=== PATIENT | female | born 1965 ===

== ENCOUNTER 2022-08-16 13:02 | Emergency (ER) | payer OTHER ==
[~2022-08-16] VITALS: Ht 172.7 cm; Wt 88.5 kg
[2022-08-16] MEDS ORDERED: ALPR.5 PO (13:32)
[2022-08-16] MEDS ORDERED: Armour Thyroid15 MG PO (13:32)
[2022-08-16] MEDS ORDERED: CONEST.625 PO (13:33)
[2022-08-16] MEDS ORDERED: PROG100 PO (13:33)
[2022-08-16] MEDS ORDERED: OXYC5 PO (15:49)
== END 2022-08-16 16:00 | disposition home or self-care (01) ==
LOC: ER 13:02
DX: S09.90XA Unspecified injury of head, initial encounter (principal); S13.4XXA Sprain of ligaments of cervical spine, initial encounter; V89.2XXA Person injured in unspecified motor-vehicle accident, traffic, initial encounter
CPT/HCPCS: 70450; 72125; A9270

== ENCOUNTER → 2024-11-16 | Outpatient (CLI) | payer OTHER ==
[~2024-11-16] MED LIST: ALPR.5 PO; Armour Thyroid15 MG PO; CONEST.625 PO; OXYC5 PO; PROG100 PO
[2024-11-22 15:13] LABS: HPV HIGH RISK BY TMA Not Detected; HPV SOURCE Cervical
== END ==
LOC: LAB SHORT 12:59 → LAB 12:59
PROVIDERS: Obstetrics & Gynecology
DX: Z01.419 Encounter for gynecological examination (general) (routine) without abnormal findings (principal)
CPT/HCPCS: 87624; G0123

== ENCOUNTER 2024-12-06 19:37 | Emergency (ER) | payer OTHER ==
[~2024-12-06] VITALS: Ht 172.7 cm; Wt 90.7 kg
[~2024-12-06 19:37] MED LIST changes: -ALPR.5 PO; +ALPRAZOLAM2 M1 PO; +CLIMARA1 EACH TOP; +CYMBALTA30 M2 PO; +EUTHYROX88 MCG PO; +NALTREX1.5 MG PO; +OMEP20ER PO; +TRAZ50 PO
[2024-12-06 19:57] VITALS: BP 151/96
== END 2024-12-06 20:45 | disposition home or self-care (01) ==
LOC: ER 19:37
DX: S61.211A Laceration without foreign body of left index finger without damage to nail, initial encounter (principal); E03.9 Hypothyroidism, unspecified; K21.9 Gastro-esophageal reflux disease without esophagitis; W26.0XXA Contact with knife, initial encounter; Z79.899 Other long term (current) drug therapy; Z88.1 Allergy status to other antibiotic agents; Z88.8 Allergy status to other drugs, medicaments and biological substances
CPT/HCPCS: 12001; 99282-25

== ENCOUNTER 2024-12-21 12:50 | Day surgery (SDC) | payer OTHER ==
[~2024-12-21] VITALS: Ht 172.7 cm; Wt 90.8 kg
[2024-12-21] VITALS (9 sets, daily range): BP systolic 133–148; BP diastolic 80–90
[~2024-12-21 12:50] MED LIST changes: +Lactated Ringer's 1,000 ML IV SCH
[2024-12-21] MEDS ORDERED: CLON2 PO (13:14)
[2024-12-21] MEDS ORDERED: DHEA PO (13:14)
[2024-12-21] MEDS ORDERED: Acetaminophen325 M1 PO (13:14)
[2024-12-21] MEDS ORDERED: THERA-D2000 UNIT PO (13:14)
[2024-12-21] MEDS ORDERED: VITAMIN B121000 MCG PO (13:15)
[2024-12-21] MEDS ORDERED: OMEGA-3 + VITA200 ML PO (13:15)
[2024-12-21] MEDS ORDERED: DOTTI1 EA18 TD (13:18)
--- NOTE | 2024-12-21 13:53 | NUR ---
Ambulatory in Day Surgery. History, Chart, Medications and Allergies reviewed before start of procedure. Lungs clear T/O to Auscultation. Patient States Post-Procedure ride home has been arranged. Patient ADMITS TO HAVING AN "ESSENTIAL OIL LOSENGE" RIGHT AFTER GETTING DRESSED INTO PT GOWN AROUND 1315. ANESTHESIA AND SURGEON NOTIFIED, PER ANESTHESIA, PROCEDURE WILL BE DELAYED AND START AT 1500. Pre-Op teaching done. Pt verbalizes understanding. PT HAS SEVERE ANXIETY, ANESTHESIA AWARE. DR DIETRICH AT BEDSIDE AT 1358 HE GAVE 3MG VERSED IV. MONITORING SPO2 AND HR CONTINUOUSLY. PT SPOUSE HARRIS AT BEDSIDE. PT BELONGINGS PLACED UNDERNEATH [employer] FOR SAFEKEEPING.
[2024-12-21] MEDS ORDERED: Midazolam HCL 1 MG/ML 5MLVIAL ONE (13:54)
[2024-12-21] MEDS ORDERED: propofoL 100 ML IV ONE (14:20)
[2024-12-21] MEDS ORDERED: FentaNYL Citrate 50 MCG/ML 2 ML Injection ONE (14:25)
--- NOTE | 2024-12-21 14:26 | NUR ---
Patient up to Ambulate independently. Gait steady. Discharge instructions reviewed with patient. Patient verbalizes understanding. Copy given to patient to take home, [facility] FAMILY. Patient States Post-Procedure ride home has been arranged. Discharged via wheelchair to private car for ride home. PT TOLERATING PO. PT REPORTS PAIN TOLERABLE. REPORTS READY TO GO HOME. MINIMAL AMT OF DRAINAGE ON ANATOLIY PAD. PT REPORTS HAVING ANATOLIY PADS AT HOME.
[2024-12-21] MEDS ORDERED: Ondansetron HCl 2 MG / ML 2ML Vial ONE (14:28)
[2024-12-21] MEDS ORDERED: Ketorolac Tromethamine 30mg Vial ONE (14:28)
[2024-12-21] MEDS ORDERED: Rocuronium Bromide 10 MG/ML 5ML Injection IV ONE (14:28)
[2024-12-21] MEDS ORDERED: Dexamethasone Sod Phos 10 MG/ML 1ML VIAL ONE (14:28)
[2024-12-21] MEDS ORDERED: Lidocaine HCl 2% 20 ML MDV ONE (14:50)
[2024-12-21] MEDS ORDERED: Prochlorperazine Edisylate 10 mg Vial IV PRN (15:15)
[2024-12-21] MEDS ORDERED: HYDROmorphone HCl 0.5 MG/0.5 ML SYR IV PRN (15:20)
[2024-12-21] MEDS ORDERED: FentaNYL Citrate 50 MCG/ML 2 ML Injection IV PRN ×3 (15:20)
[2024-12-21] MEDS ORDERED: Ondansetron HCl 2 MG / ML 2ML Vial IV PRN ×2 (15:20→15:55)
== END 2024-12-21 16:26 | disposition home or self-care (01) ==
LOC: ORSCMMR 12:50 → ORD 14:00 → ORSCMMR 14:00
PROVIDERS: Obstetrics & Gynecology
PROC: 0UDB8ZX Extraction of Endometrium, Via Natural or Artificial Opening Endoscopic, Diagnostic (ICD-10-PCS; principal; 2024-12-21 14:00)
DX: N95.0 Postmenopausal bleeding (principal); K21.9 Gastro-esophageal reflux disease without esophagitis; F43.10 Post-traumatic stress disorder, unspecified; F41.9 Anxiety disorder, unspecified; Z79.899 Other long term (current) drug therapy; E66.9 Obesity, unspecified; Z68.30 Body mass index [BMI] 30.0-30.9, adult
CPT/HCPCS: 88305; J1100; J1885; J2250; J2405; J2704; J3010; J7120